=== PATIENT | female | born 1995 | race African-American/Black ===

== ENCOUNTER 2016-10-16 09:16 | Emergency (ER) | payer BC ==
[~2016-10-16] VITALS: Ht 149.9 cm; Wt 58.0 kg
[~2016-10-16 09:16] MED LIST: HYDR25 PO; PENI500T PO; PRED20 PO; RANI300T PO
[2016-10-16 09:18] VITALS: BP 124/79; PULSE 84; RESP 16; TEMP 97.8; O2SAT 100
--- NOTE | 2016-10-16 09:34 | PD ---
HPI Chief Complaint: Complaint Time Seen by Provider: 09:34 Travel History International Travel<30 days: No Contact w/Intl Traveler<30days: No Traveled to known affect area: No History of Present Illness HPI 21-year-old female presents to the emergency department for evaluation of burning with urination and suprapubic pressure for 1 day. Denies any fever, chills, nausea, vomiting, diarrhea, constipation, vaginal discharge. Denies , states that she is currently on her menstrual cycle. Denies any medical conditions. No aggravating or alleviating factors. No other complaints. PFSH Past Medical History Medical History: Denies Significant Hx Diminished Hearing: No Immunizations Current: Yes ?: Not LMP: 10/15/16 Social History Alcohol Use: Yes Tobacco Use: No Substance Use: Yes (MARIJUANA OCCASIONALLY) Allergies-Medications (Allergen,Severity, Reaction): Coded Allergies: No Known Allergies (Unverified , 10/16/16) Reported Meds & Prescriptions Reported Meds & Active Scripts Active Keflex (Cephalexin) 500 Mg Cap 500 Mg PO Q12H 7 Days Review of Systems Except as stated in HPI: all other systems reviewed are Neg Physical Exam Narrative GENERAL: Well-nourished and well-developed pleasant patient in no acute distress who is nontoxic appearing. SKIN: Warm and dry. HEAD: Normocephalic and atraumatic. EYES: No injection, drainage, or hyphema noted. PERRLA. EOMI. ENT: No nasal drainage noted. Oropharynx is clear. NECK: Supple and the trachea is midline. CARDIOVASCULAR: Regular rate and rhythm. RESPIRATORY: Breath sounds are equal bilaterally with no accessory muscle use, wheezing, rhonchi, or crackles. GASTROINTESTINAL: Mild suprapubic tenderness to palpation. No rebound tenderness or guarding. Abdomen is soft and nondistended. BACK: [place] CVA tenderness. NEUROLOGICAL: Awake, alert, and oriented. Normal speech and gait. Cranial nerves are grossly intact. Data Data Last Documented VS Vital Signs Date Time Temp Pulse Resp B/P Pulse Ox O2 Delivery O2 Flow Rate FiO2 10/16/16 09:18 97.8 84 16 124/79 100 Room Air Orders Urinalysis - C+S If Indicated (10/16/16 09:26) Ed Urine Pregnancytest Poc (10/16/16 09:34) Urine Culture (10/16/16 09:30) Labs Laboratory Tests Test 10/16/16 09:30 Urine Color YELLOW Urine Turbidity HAZY Urine pH 5.5 Urine Specific [place] 1.025 Urine Protein 30 mg/dL Urine Glucose (UA) NEG mg/dL Urine Ketones NEG mg/dL Urine Occult Blood LARGE Urine Nitrite POS Urine Bilirubin NEG Urine Urobilinogen LESS THAN 2.0 MG/DL Urine Leukocyte Esterase LARGE Urine RBC 33 /hpf Urine WBC 162 /hpf Urine WBC Clumps FEW Urine Squamous Epithelial 6 /hpf Cells Urine Bacteria FEW /hpf Urine Hyaline Casts 2 /lpf Urine Mucus FEW /lpf Microscopic Urinalysis Comment CULTURE INDICATED MDM Medical Decision Making Medical Screen Exam Complete: Yes Emergency Medical Condition: Yes Differential Diagnosis Urethritis versus cystitis versus vaginitis Narrative Course 21-year-old female presents to the emergency room for evaluation of burning with urination and suprapubic pressure for 1 day. Patient is afebrile, vital signs are stable. Abdominal examination is benign. test is negative. Urinalysis shows 30 protein, large occult blood, positive nitrites, large and decide esterase, 33 red blood cells, 162 white blood cells, few white blood cell clumps, few bacteria, few mucus. This is consistent with urinary tract infection. Patient will be treated with Keflex. Advised follow-up with her PCP. Diagnosis Primary Impression: Urinary tract infection Qualified Code: N30.00 - Acute cystitis without hematuria Referrals: Primary Care Physician Patient Instructions: General Instructions, Urinary Tract Infection in Women ( ED) Additional Instructions: Take medication as prescribed with food and a full glass of water. Follow-up with your Primary Care Physician. Return to the ED for any acute worsening of symptoms. Med/Other Pt SpecificInfo: Prescription(s) given Scripts Cephalexin (Keflex)500 Mg Azv366 Mg PO Q12H 7 Days Ref 0 Prov:Dequan More MD 10/16/16 Hawa Ordaz Oct 16, 2016 09:34
[2016-10-16 09:53] LABS: BACTERIA, URINE FEW /hpf; BLOOD, URINE LARGE (NEG); COMMENT (UR) CULTURE INDICATED; CULTURE IF INDICATED CULTURE INDICATED; GLUCOSE,URINE NEG (NEG); HYALINE CAST, URINE 2 /lpf (RARE); KETONE, URINE NEG (NEG); MUCUS URINE FEW /lpf (OCC); PH, URINE 5.5 (5.0-8.5); SQUAMOUS EPITHELIAL CELL URINE 6 /hpf (0-5); URINE COLOR YELLOW (YELLW/STRAW)
[2016-10-16 09:54] LABS: NITRITE,URINE POS (NEG)
[2016-10-16] MEDS ORDERED: CEPH-460 PO (10:01)
== END 2016-10-16 10:11 | disposition home or self-care (01) ==
LOC: NEPB 09:16
DX: N30.00 Acute cystitis without hematuria (principal); B96.20 Unspecified Escherichia coli [E. coli] as the cause of diseases classified elsewhere
CPT/HCPCS: 81001; 84703; 87077; 87086; 87186; 99283

== ENCOUNTER 2017-08-02 12:05 | Emergency (ER) | payer BC ==
[~2017-08-02] VITALS: Ht 149.9 cm; Wt 56.0 kg
[~2017-08-02 12:05] MED LIST changes: +CEPH-460 PO; -HYDR25 PO; -PENI500T PO; -PRED20 PO; -RANI300T PO
[2017-08-02 12:07] VITALS: BP 131/50; PULSE 78; RESP 16; TEMP 98.1; O2SAT 99
[2017-08-02] MEDS ORDERED: ERYTOIN10 LEFT EYE (12:34)
--- NOTE | 2017-08-02 12:40 | PD ---
HPI Chief Complaint: ENT Complaint Time Seen by Provider: 12:29 Travel History International Travel<30 days: No Contact w/Intl Traveler<30days: No Traveled to known affect area: No History of Present Illness HPI 21-year-old female presents to the emergency room for evaluation of left eye itchiness, redness, and drainage since yesterday. States she woke up this morning with her eye glued shut. Denies photophobia, severe pain, or changes in visual acuity. She has associated left ear pain and sore throat. Denies fever, chills, nausea, vomiting, cough, or congestion. No chronic medical conditions or daily medications. PFSH Past Medical History Diminished Hearing: No Immunizations Current: Yes ?: Not LMP: now Social History Alcohol Use: Yes Tobacco Use: Yes Substance Use: Yes (MARIJUANA OCCASIONALLY) Allergies-Medications (Allergen,Severity, Reaction): Coded Allergies: No Known Allergies (Unverified , 10/16/16) Reported Meds & Prescriptions Reported Meds & Active Scripts Active Erythromycin Opth Oint 5 Mg/Gm Oint 1 Applic LEFT EYE QID Review of Systems Except as stated in HPI: all other systems reviewed are Neg Physical Exam Narrative GENERAL: Well-nourished, well-developed female in no acute distress. Afebrile. Ambulatory. SKIN: Focused skin assessment warm/dry. HEAD: Normocephalic. EYES: PERRL, EOMI without pain. Moderate injection of the left eye with mild drainage. No scleral icterus. ENT: Mucosa pink and moist. Moderate erythema without edema or exudates. No uvular edema. No uvular, palatal, or tonsillar deviation. Airway patent. Nasal turbinates appear normal without nasal blood, purulent drainage or septal hematoma. EARS: Bilateral pinnae and external canals appear within normal limits. Bilateral tympanic membranes without erythema, dullness or perforation. NECK: Supple, trachea midline. No JVD or lymphadenopathy. CARDIOVASCULAR: Regular rate and rhythm without murmurs, gallops, or rubs. RESPIRATORY: Breath sounds equal bilaterally. No accessory muscle use. No crackles, rales, wheezes, or rhonchi. Data Data Last Documented VS Vital Signs Date Time Temp Pulse Resp B/P (MAP) Pulse Ox O2 Delivery O2 Flow Rate FiO2 08/02/17 12:07 98.1 78 16 131/50 (77) 99 Room Air MDM Medical Decision Making Medical Screen Exam Complete: Yes Emergency Medical Condition: Yes Medical Record Reviewed: Yes Differential Diagnosis Conjunctivitis, upper respiratory infection, strep Narrative Course 21-year-old female presents to the emergency room for evaluation of left eye redness, grittiness, and drainage for the past 2 days. She has associated earache and sore throat. Physical exam are reassuring. No evidence of strep or otitis media. Denies fever, chills, nausea, vomiting, cough, or congestion. History and physical exam are consistent with viral upper respiratory infection. Likely viral conjunctivitis but patient will be treated empirically with erythromycin ointment. Told to follow-up with her PCP or return for worsening symptoms. She understands and agrees to plan. Diagnosis Primary Impression: Upper respiratory infection Qualified Codes: J00 - Acute nasopharyngitis [common cold] Additional Impression: Conjunctivitis Qualified Codes: B30.9 - Viral conjunctivitis, unspecified Referrals: Primary Care Physician Additional Instructions: Erythromycin ointment as directed for 5-7 days. Follow-up with a primary care physician. Return to the emergency room for worsening symptoms. Med/Other Pt SpecificInfo: Prescription(s) given Scripts Erythromycin Opth Oint (Erythromycin Opth Oint) 5 Mg/Gm Oint 1 APPLIC LEFT EYE QID for Infection, #1 TUBE 0 Refills Prov: Bert Mata MD 08/02/17 Disposition: 01 DISCHARGE HOME Condition: Stable Bianca Shine Aug 02, 2017 12:40
== END 2017-08-02 12:52 | disposition home or self-care (01) ==
LOC: NEPK 12:05
DX: J06.9 Acute upper respiratory infection, unspecified (principal); B30.9 Viral conjunctivitis, unspecified
CPT/HCPCS: 99283